=== PATIENT | male | born 1995 | race Caucasian/White ===

== ENCOUNTER 2017-04-23 20:06 | Emergency (ER) | payer OTHER ==
[2017-04-23] MEDS ORDERED: Lidocaine 1% with EPINEPHrine 1:100,000 20 ML MDV INFILT ONE (20:07)
[2017-04-23] MEDS ORDERED: Amoxicillin/Clavulanate K 875-125 MG Tab PO ONE (20:52)
--- NOTE | 2017-04-23 21:06 | EDM.PDOC ---
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, sits at a desk Left Upper Rectal Pain Score (Numeric/FACES): 5 - Related Data Allergies Allergy/AdvReac Type Severity Reaction Status Date / Time No Known Allergies Allergy Verified 04/23/17 20:18 Home Meds: Home Meds Amoxicillin/Clavulanate K [Augmentin 875-125 MG] 1 tab PO BID #14 tablet [Rx] ED ROS GENERAL - Review of Systems Review Of Systems: See Below Constitutional: Reports: No Symptoms HEENT: Reports: No Symptoms Respiratory: Reports: No Symptoms Cardiovascular: Reports: No Symptoms Endocrine: Reports: No Symptoms GI/Abdominal: Reports: No Symptoms : Reports: No Symptoms Musculoskeletal: Reports: No Symptoms Skin: Reports: Erythema, Wound Neurological: Reports: No Symptoms Psychiatric: Reports: No Symptoms Hematologic/Lymphatic: Reports: No Symptoms Immunologic: Reports: No Symptoms ED EXAM, GENERAL - Physical Exam Exam: See Below Exam Limited By: No Limitations General Appearance: Alert, WD/WN, Mild Distress Rectal (Males) Exam: Other (NT and no swelling at anus or in anal canal, digital pressure on anus is NT, 2 old small ext hemorrhoids are incidental and NT and not swollen, on L buttock posterior to anus is an indurated area of 8 x 4 x 0.5 cm, slight erythema and warmth centrally, cleaned x 12 with gauze and betadaine, then cleaned with alc prep x 4, 1% lido with epi with #30 needle used for local, 2 cm incision med with drainage of 5 cc of taylor liquid pus with slight odor, probed to 1 cm depth in all directions (not horizontal), 1/4" packing inserted in each direction, loculations noted on exam although no extension or 2nd abscess cavity present, there was a good 1 cm from bottom of cavity to rectal wall, aerobic and anaerobic culture obtained, tolerated well) Course - Vital Signs Last Recorded V/S: Last Vital Signs Temp 37.4 C 04/23/17 20:18 Pulse 93 04/23/17 20:18 Resp 14 04/23/17 20:18 BP 129/55 L 04/23/17 20:18 Pulse Ox 98 04/23/17 20:18 - Orders/Labs/Meds Orders: Active Orders 24 hr Category Date Time Status CULTURE ANAEROBIC [RM] Stat Lab 04/23/17 20:42 Ordered Meds: Medications Discontinued Medications Generic Name Dose Route Start Last Admin Trade Name Marta PRN Reason Stop Dose Admin Amoxicillin/Clavulanate Potassium 1 tab 04/23/17 20:52 Augmentin 875 Mg/125 Mg PO 04/23/17 20:53 ONETIME ONE Departure - Departure Time of Disposition: 21:06 Disposition: Home, Self-Care 01 Condition: Good Clinical Impression: Perirectal abscess - Discharge Information Prescriptions: Amoxicillin/Clavulanate K [Augmentin 875-125 MG] 1 tab PO BID #14 tablet Instructions: Perirectal Abscess Referrals: PCP,None [Primary Care Provider] - Forms: ED Department Discharge, ED Return to Work/School Form Additional Instructions: Avoid pressure. Use a foam cushion donut of 6-8" thickness which you can make yourself. Use gauze in underclothes to collect secretions. Soak for 10 minutes in bathtub 3 times a day. Avoid pulling out the packing if possible. Call the surgeon at 8 AM tomorrow for a same day appointment. In most cases, the packing will need to be replaced several times, which the surgeon can do. In some cases, the surgeon will need to open up the fistula that connects the rectal mucosa to the abscess, although sometimes the fistula tract will scar shut on its own. For infection, take Augmentin 875/125 mg 1 tab 2 times a day for 7 days. A culture was sent to the lab, which will take 3-4 days to isolate the bacteria , which is often polymicrobial. See the surgeon the same day or return to the Emergency Department if there is any increase in redness, swelling, pain, warmth, fever or drainage. For pain and inflammation, take ibuprofen 200 mg 3 tabs and acetaminophen 500 mg 2 tabs 4 times a day for 2 days, longer if needed. Call your Physician or Return to Emergency Department if: * Your condition worsens in any way. * You develop fever greater than 100.4. * You have vomitting that does not stop with medications. * You have pain that is not controlled with medications. - My Orders Last 24 Hours: My Active Orders 04/23/17 20:42 CULTURE ANAEROBIC [RM] Stat - Assessment/Plan Last 24 Hours: My Active Orders 04/23/17 20:42 CULTURE ANAEROBIC [RM] Stat
== END 2017-04-23 21:18 | disposition home or self-care (01) ==
LOC: FB.ED 20:06
DX: K61.1 Rectal abscess (principal)
CPT/HCPCS: 46040; 87070; 87205; 99283; A9270; 10060